=== PATIENT | female | born 1995 | race Caucasian/White ===

== ENCOUNTER 2017-02-19 19:57 | Emergency (ER) | payer SELFPAY ==
[2017-02-19 20:02] VITALS: TEMP 98.2; O2SAT 97
[2017-02-19] MEDS ORDERED: PHENAZOPYRIDINE HCL 200 MG TAB PO ONE (20:15)
[2017-02-19 20:32] LABS: COLOR PALE YELLOW; LEUKOCYTE ESTERASE,URINE 2+ (NEGATIVE); NITRITE,URINE NEGATIVE (NEGATIVE)
--- NOTE | 2017-02-19 20:48 | EDPHY ---
H & P Time Seen by Provider: 02/19/17 20:08 HPI/ROS: CHIEF COMPLAINT: Dysuria, frequent urination HISTORY OF PRESENT ILLNESS: 21-year-old female presents to the emergency department complaining of dysuria and frequency with urination since today. The patient has had urinary tract infections in the past treated with oral antibiotics. She denies abdominal pain, back pain, fevers or vomiting. Last menstrual period was nearly 1 month ago and she denies . ROS: Denies fevers, chills, back pain, abdominal pain, vomiting Past Medical/Surgical History: Negative Social History: Visiting from [place] Smoking Status: Never smoked Physical Exam: On examination patient is afebrile and nontoxic-appearing. Abdomen is soft and nontender. No CVA tenderness bilaterally. Lungs clear to auscultation in all wilson with no wheezing, rhonchi or rales. Heart regular rate rhythm without murmur. Constitutional: Initial Vital Signs Temperature (C) 36.8 C 02/19/17 20:00 Heart Rate 111 H 02/19/17 20:00 Respiratory Rate 16 02/19/17 20:00 Blood Pressure 133/84 H 02/19/17 20:00 O2 Sat (%) 97 02/19/17 20:00 O2 Delivery Mode Room Air Allergies/Adverse Reactions: No Known Allergies Allergy (Unverified 02/19/17 20:00) Home Medications: Medication Instructions Recorded Cephalexin [Keflex] 500 mg PO QID #20 cap 02/19/17 Phenazopyridine HCl [Pyridium] 200 mg PO Q8PRN PRN #6 tab 02/19/17 MDM/Departure - MDM Medications Given: Discontinued Medications Phenazopyridine HCl (Pyridium) 200 mg PO EDNOW ONE Stop: 02/19/17 20:16 Last Admin: 02/19/17 20:17 Dose: 200 mg ED Course/Re-evaluation: 21-year-old female with symptoms of urinary tract infection. Urinalysis confirms this. I doubt pyelonephritis. She will be treated with oral Keflex and was also given peridium. She will return if she develops fever, vomiting, abdominal or back pain, or if she feels worse in any way. She was comfortable with this plan. - Depart Disposition: Home, Routine, Self-Care Clinical Impression: Urinary tract infection Qualifiers: Urinary tract infection type: acute cystitis Hematuria presence: without hematuria Qualified Code(s): N30.00 - Acute cystitis without hematuria Condition: Good Instructions: Urinary Tract Infection in Women (ED) Additional Instructions: Keflex 4 times daily for 5 days. Pyridium as needed for symptoms of burning with urination and frequency with urination. Return to the emergency department if he developed fever, vomiting, back pain, or if you feel worse in any way. Prescriptions: Cephalexin [Keflex] 500 mg PO QID #20 cap Phenazopyridine HCl [Pyridium] 200 mg PO Q8PRN PRN #6 tab PRN Reason: P.r.n. 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
[2017-02-19] MEDS ORDERED: CEPHALEXIN 500MG PREPACK#4 BTL TAKEHOME ONE (20:53)
[2017-02-19 20:58] LABS: MUCUS TRACE /lpf (NONE-1+)
[2017-02-19 21:14] VITALS: BP 104/77; PULSE 100; RESP 18
== END 2017-02-19 21:13 | disposition home or self-care (01) ==
DX: N30.00 Acute cystitis without hematuria (principal)